=== PATIENT | female | born 1955 | race Native Hawaiian/Other Pacific Islander ===

== ENCOUNTER 2022-09-25 09:08 | Inpatient (IN) ==
[2022-09-25] MEDS ORDERED: SODIUM CHLORIDE 0.9% 1000ML 1,000 ML IV SCH (09:30)
--- NOTE | 2022-09-25 09:32 | Emergency Department Note ---
Impression & Plan Acute confusion, Hyponatremia, Weakness, Acute UTI, Acute hyperglycemia, Acute dehydration, Elevated lactic acid level, Hypomagnesemia ED Provider Note NAME: BRAIN DE GUZMAN AGE: 67 SEX: F : 1955 ARRIVES VIA: Ambulance INFORMANT: [Patient][nursing, ems] ED PROVIDER(S): [Jeffrey Hendrix MD] CHIEF COMPLAINT: Weakness HISTORY OF PRESENT ILLNESS: The patient is a 67-year-old female who presents from the primary care doctor's office. She showed up for an appointment that she did not actually have. She was supposed to be seen yesterday but missed the appointment yesterday. The patient has apparently had increasing weakness of the right side for the last 2 or 3 days. She has a history of a CVA with persistent right-sided weakness but the weakness in the right has been worse lately. She has had a persistent cough. No fever, no chest pain or shortness of breath. No abdominal pain, no vomiting or diarrhea. Patient denies any urinary complaints. No falls. As per EMS, the patient's blood sugar was over 400. She was only oriented x2 PMHx/PSHx: See Below SOCIAL HISTORY: See Below. PHYSICAL EXAM: GENERAL: Patient is in no acute distress. HEENT: No acute trauma, normocephalic atraumatic, mucous membranes markedly dry, no nasal congestion. NECK: No stridor, no adenopathy, no meningismus, trachea is midline. LUNGS: Clear to auscultation bilaterally, no wheeze, no rhonchi, breath sounds equal. HEART: 2/6 systolic murmur, regular rate and rhythm. ABDOMEN: Soft, nontender, bowel sounds positive, no peritonitis. EXTREMITIES: No cyanosis or edema, full range of motion of all the joints without pain or difficulty, no signs for acute trauma. NEUROLOGIC: No speech slur or facial droop. She seems diffusely weak. No cerebellar dysfunction. The patient knew where she was and her name, she missed the month by 1--she thought it was August, she did know the year SKIN: No rash, no jaundice, no diaphoresis. DIFFERENTIAL DIAGNOSIS: Dehydration, electrolyte imbalance, hyperglycemia, DKA, pneumonia, UTI, renal or liver failure, intracranial bleeding or stroke, among others. EMERGENCY DEPARTMENT COURSE/PROCEDURES: Prior/Outside records reviewed: EMS notes. ECG per my interpretation: Indication was weakness. The ECG shows a normal sinus rhythm with a rate of 61. There is some poor R wave progression. No ST elevation, no PVCs. The QTc is 424. Continuous Cardiac Monitoring per my interpretation: An order was placed for continuous cardiac monitoring. The monitor shows a rate of 61 with normal sinus rhythm. Critical Care Note: I have personally spent 51 minutes of critical care time in the direct management of this patient. This includes bedside care, interpretation of diagnostic studies, and testing, discussion with consultants, patient, and family members, and other required patient management activities. This 51 minutes is in excess of all separately billable procedures. MEDICAL DECISION MAKING: There is no leukocytosis or concerning anemia. There is a normal platelet count. Renal panel testing shows a low sodium and low magnesium. Blood sugar was over 350. Lactic acid level was elevated consistent with infection and/or dehydration. Alk phos was elevated, the remaining liver enzymes were unremarkable. ECG showed a normal sinus rhythm, no obvious ischemia. Cardiac enzyme testing x1 was not consistent with acute cardiac injury. Patient appeared to be in a euthyroid state. Urinalysis returned consistent with infection. COVID test returned negative. Chest x-ray did not show mediastinal widening, pneumonia or pneumothorax per my review. Brain CT showed no acute ble ed or mass effect. On exam, the patient appeared diffusely weak and dehydrated. Patient received 2 L of IV saline for hydration. She was given IV cefepime as empiric antibiotic coverage. She received IV magnesium, IV insulin. The patient's blood sugar is now in the 200s. She remains awake, her vital signs are stable. Given her confusion, given her weakness, given the electrolyte abnormalities, given the UTI, I do think a hospital stay is warranted. I suspect the UTI caused her hyperglycemia and resultant dehydration. I did speak with the patient and case management, the on-call hospitalist was consulted. DISPOSITION: Patient's presentation and findings warrant a hospital stay. Past Med/Surg History Medical History COPD (chronic obstructive pulmonary disease) Diabetes mellitus Recurrent UTI Social History Smoking Status: Heavy tobacco smoker Tobacco Type: Cigarettes Feels Safe at Home: Yes Allergies Allergies Allergy/AdvReac Type Severity Reaction Status Date / Time theophylline Allergy Severe HEART RACES Verified 12/02/13 13:31 moxifloxacin Allergy Intermediate RASH Verified 12/02/13 13:31 haloperidol [From Haldol] Allergy Unknown Verified 09/25/22 14:22 quetiapine [From Seroquel] Allergy Unknown Verified 09/25/22 14:22 Home Meds Home Medications Medication Instructions Recorded Confirmed Atorvastatin (Atorvastatin Calcium) 20 mg PO DAILY ##0 12/02/13 09/25/22 CYANOCOBALAMIN (VITAMIN B-12) 1,000 mg PO DAILY ##0 12/02/13 09/25/22 DOXEPIN HCL (DOXEPIN) 100 mg PO HS ##30 12/02/13 09/25/22 FUROSEMIDE (LASIX) 40 mg PO UD #0 tabs 12/02/13 09/25/22 GABAPENTIN (NEURONTIN) 600 mg PO HS #0 tabs 12/02/13 09/25/22 Gabapentin 300 mg PO BID ##120 12/02/13 09/25/22 HALOPERIDOL (HALDOL) 1 mg PO BID #0 tabs 12/02/13 09/25/22 HYDROXYZINE PAMOATE (VISTARIL) 50 mg PO TID #0 caps 12/02/13 09/25/22 MAGNESIUM OXIDE (MAG-OX) 400 mg PO DAILY #0 tabs 12/02/13 09/25/22 OMEPRAZOLE (PRILOSEC) 20 mg PO BID #0 caps 12/02/13 09/25/22 OXYCODONE/ACETAMINOPHEN 5MG/325MG 1 - 2 tab PO Q6H PRN Pain #0 tabs 12/02/13 09/25/22 (PERCOCET 5MG/325MG) aspirin 81 mg tablet,delayed 81 mg PO DAILY ##0 12/02/13 09/25/22 release LISINOPRIL (PRINIVIL) 5 mg PO DAILY #0 tabs 12/07/13 09/25/22 amitriptyline 50 mg tablet See Rx Instructions .Route .COMPLEX 09/25/22 09/25/22 bupropion HCl 300 mg 24 hr tablet, 300 mg PO DAILY 09/25/22 09/25/22 extended release buspirone 10 mg tablet 10 mg PO BID 09/25/22 09/25/22 clopidogrel 75 mg tablet 75 mg PO DAILY 09/25/22 09/25/22 dapagliflozin propanediol 10 mg 10 mg PO DAILY 09/25/22 09/25/22 tablet (Farxiga) dulaglutide 3 mg/0.5 mL 3 mg subcut WK 09/25/22 09/25/22 subcutaneous [facility]or ([facility]) duloxetine 60 mg capsule,delayed 60 mg PO BID 09/25/22 09/25/22 release metformin 500 mg tablet,extended 500 mg PO QID 09/25/22 09/25/22 release 24 hr risperidone 4 mg tablet 4 mg PO HS 09/25/22 09/25/22 Results & Data (ED) Vital Signs Vital Signs - 24 hr 09/25/22 09:17 09/25/22 09:19 09/25/22 09:19 Temperature 36.7 C Temperature Source Oral Pulse Rate 62 Pulse Rate [Apical] 61 Pulse Rhythm Pulse Rhythm [Apical] Regular Pulse Strength Pulse Strength [Apical] Normal Respiratory Rate 19 Respiratory Effort / Characteristics Non-Labored Respiratory Depth Normal Respiratory Pattern Regular Blood Pressure Blood Pressure [Right Arm] 132/72 Blood Pressure Mean Blood Pressure Mean [Right Arm] 92 Pulse Oximetry 97 Oxygen Delivery Method Room Air Room Air Sepsis Recent Fever Within 48 Hours Sepsis New/Unexplained Change in Mental Status Sepsis Action Taken by Nursing 09/25/22 09:27 09/25/22 09:31 09/25/22 13:58 Temperature 36.7 C Temperature Source Oral Pulse Rate 61 61 58 L Pulse Rate [Apical] Pulse Rhythm Regular Pulse Rhythm [Apical] Pulse Strength Normal Pulse Strength [Apical] Respiratory Rate 19 18 Respiratory Effort / Characteristics Non-Labored Respiratory Depth Normal Respiratory Pattern Regular Blood Pressure 132/72 Blood Pressure [Right Arm] Blood Pressure Mean 92 Blood Pressure Mean [Right Arm] Pulse Oximetry 97 97 Oxygen Delivery Method Room Air Room Air Sepsis Recent Fever Within 48 Hours No Sepsis New/Unexplained Change in Mental Status No Sepsis Action Taken by Nursing No Action Required Home Medications Current Medication List: was personally reviewed by me Laboratory Data Attestation: I reviewed the patient's lab results. 09/25/22 09:37 09/25/22 09:37 Lab Results 09/25/22 09/25/22 09/25/22 Range/Units 09:37 09:37 09:37 WBC 4.46 L (4.8-10.8) K/ul RBC 4.46 (4.20-5.40) M/uL Hgb 12.4 (12.0-16.0) g/dl Hct 37.5 (37.0-47.0) % MCV 84.1 (80.0-100.0) fL MCH 27.8 (25.0-34.0) pg MCHC 33.1 (32.0-36.0) g/dL RDW Std Deviation 43.8 (36.4-46.3) fL RDW Coeff of Tim 14.3 (11.5-14.5) % Plt Count 232 (130-400) K/uL MPV 8.8 L (9.4-12.4) fL Immature Gran % (Auto) 0.4 % Neut % (Auto) 61.6 % Lymph % (Auto) 22.6 % [place] % (Auto) 12.3 % Eos % (Auto) 1.8 % Baso % (Auto) 1.3 % Neut # (Auto) 2.74 (1.40-6.50) K/uL Lymph # (Auto) 1.01 L (1.2-3.4) K/uL [place] # (Auto) 0.55 (0.11-0.59) K/uL Eos # (Auto) 0.08 (0-0.50) K/uL Baso # (Auto) 0.06 (0-0.2) K/uL Immature Gran # (Auto) 0.02 (0.01-0.20) K/uL Sodium 128 L (136-145) mmol/L Potassium 4.7 (3.5-5.1) mmol/L Chloride 96 L (98-107) mmol/L Carbon Dioxide 25 (21-32) mmol/L Anion Gap 7 (3-11) BUN 16 (6-23) mg/dl Creatinine 1.00 (0.6-1.2) mg/dl Est Cr Clr Drug Dosing 56.9 ml/min Est GFR ( Amer) 68.5 ml/min Est GFR (Non-Af Amer) 59.1 ml/min BUN/Creatinine Ratio 16.0 (10-20) Glucose 364 H* (70-99(Fasting)) mg/dl POC Glucose (70-99) mg/dl Lactate 2.2 H* (0.4-2.0) mmol/L Calcium 9.9 (8.6-10.3) mg/dl Magnesium 1.4 L (1.7-2.4) mg/dl Total Bilirubin 0.5 (0.2-1.0) mg/dl AST 32 (13-39) U/L ALT 28 (7-52) U/L Alkaline Phosphatase 272 H (34-104) U/L Troponin I High Sens 5.0 (0-14) pg/ml Total Protein 7.3 (6.0-8.3) gm/dl Albumin 3.3 L (3.4-5.0) gm/dl Globulin 4.0 (2.5-4.0) gm/dl Albumin/Globulin Ratio 0.8 L (0.9-2) TSH (0.300-4.500) uIu/ml Urine Color Urine Appearance (Clear) Urine pH (4.5-7.5) Ur Specific [place] (1.000-1.030) Urine Protein (Negative) Urine Glucose (UA) (Negative) Urine Ketones (Negative) Urine Blood (Negative) Urine Nitrite (Negative) Urine Bilirubin (Negative) Urine Urobilinogen (Negative) Ur Leukocyte Esterase (Negative) Urine WBC (Auto) (0-5) /hpf Urine RBC (Auto) (0-4) /hpf U Hyaline Cast (Auto) (0-5) /lpf U Epithel Cells (Auto) (0-5) /lpf Urine Bacteria (Auto) (Negative) SARS-CoV-2, RNA, NAAT (NEGATIVE) 09/25/22 09/25/22 09/25/22 Range/Units 09:37 09:37 11:24 WBC (4.8-10.8) K/ul RBC (4.20-5.40) M/uL Hgb (12.0-16.0) g/dl Hct (37.0-47.0) % MCV (80.0-100.0) fL MCH (25.0-34.0) pg MCHC (32.0-36.0) g/dL RDW Std Deviation (36.4-46.3) fL RDW Coeff of Tim (11.5-14.5) % Plt Count (130-400) K/uL MPV (9.4-12.4) fL Immature Gran % (Auto) % Neut % (Auto) % Lymph % (Auto) % [place] % (Auto) % Eos % (Auto) % Baso % (Auto) % Neut # (Auto) (1.40-6.50) K/uL Lymph # (Auto) (1.2-3.4) K/uL [place] # (Auto) (0.11-0.59) K/uL Eos # (Auto) (0-0.50) K/uL Baso # (Auto) (0-0.2) K/uL Immature Gran # (Auto) (0.01-0.20) K/uL Sodium (136-145) mmol/L Potassium (3.5-5.1) mmol/L Chloride (98-107) mmol/L Carbon Dioxide (21-32) mmol/L Anion Gap (3-11) BUN (6-23) mg/dl Creatinine (0.6-1.2) mg/dl Est Cr Clr Drug Dosing ml/min Est GFR ( Amer) ml/min Est GFR (Non-Af Amer) ml/min BUN/Creatinine Ratio (10-20) Glucose (70-99(Fasting)) mg/dl POC Glucose (70-99) mg/dl Lactate 2.6 H* (0.4-2.0) mmol/L Calcium (8.6-10.3) mg/dl Magnesium (1.7-2.4) mg/dl Total Bilirubin (0.2-1.0) mg/dl AST (13-39) U/L ALT (7-52) U/L Alkaline Phosphatase (34-104) U/L Troponin I High Sens (0-14) pg/ml Total Protein (6.0-8.3) gm/dl Albumin (3.4-5.0) gm/dl Globulin (2.5-4.0) gm/dl Albumin/Globulin Ratio (0.9-2) TSH 1.727 (0.300-4.500) uIu/ml Urine Color Urine Appearance (Clear) Urine pH (4.5-7.5) Ur Specific [place] (1.000-1.030) Urine Protein (Negative) Urine Glucose (UA) (Negative) Urine Ketones (Negative) Urine Blood (Negative) Urine Nitrite (Negative) Urine Bilirubin (Negative) Urine Urobilinogen (Negative) Ur Leukocyte Esterase (Negative) Urine WBC (Auto) (0-5) /hpf Urine RBC (Auto) (0-4) /hpf U Hyaline Cast (Auto) (0-5) /lpf U Epithel Cells (Auto) (0-5) /lpf Urine Bacteria (Auto) (Negative) SARS-CoV-2, RNA, NAAT NEGATIVE (NEGATIVE) 09/25/22 09/25/22 09/25/22 Range/Units 12:00 12:11 13:49 WBC (4.8-10.8) K/ul RBC (4.20-5.40) M/uL Hgb (12.0-16.0) g/dl Hct (37.0-47.0) % MCV (80.0-100.0) fL MCH (25.0-34.0) pg MCHC (32.0-36.0) g/dL RDW Std Deviation (36.4-46.3) fL RDW Coeff of Tim (11.5-14.5) % Plt Count (130-400) K/uL MPV (9.4-12.4) fL Immature Gran % (Auto) % Neut % (Auto) % Lymph % (Auto) % [place] % (Auto) % Eos % (Auto) % Baso % (Auto) % Neut # (Auto) (1.40-6.50) K/uL Lymph # (Auto) (1.2-3.4) K/uL [place] # (Auto) (0.11-0.59) K/uL Eos # (Auto) (0-0.50) K/uL Baso # (Auto) (0-0.2) K/uL Immature Gran # (Auto) (0.01-0.20) K/uL Sodium (136-145) mmol/L Potassium (3.5-5.1) mmol/L Chloride (98-107) mmol/L Carbon Dioxide (21-32) mmol/L Anion Gap (3-11) BUN (6-23) mg/dl Creatinine (0.6-1.2) mg/dl Est Cr Clr Drug Dosing ml/min Est GFR ( Amer) ml/min Est GFR (Non-Af Amer) ml/min BUN/Creatinine Ratio (10-20) Glucose (70-99(Fasting)) mg/dl POC Glucose 220 H (70-99) mg/dl Lactate 1.2 (0.4-2.0) mmol/L Calcium (8.6-10.3) mg/dl Magnesium (1.7-2.4) mg/dl Total Bilirubin (0.2-1.0) mg/dl AST (13-39) U/L ALT (7-52) U/L Alkaline Phosphatase (34-104) U/L Troponin I High Sens (0-14) pg/ml Total Protein (6.0-8.3) gm/dl Albumin (3.4-5.0) gm/dl Globulin (2.5-4.0) gm/dl Albumin/Globulin Ratio (0.9-2) TSH (0.300-4.500) uIu/ml Urine Color Yellow Urine Appearance Cloudy A (Clear) Urine pH 5.5 (4.5-7.5) Ur Specific [place] 1.017 (1.000-1.030) Urine Protein Negative (Negative) Urine Glucose (UA) 3+ H (Negative) Urine Ketones Negative (Negative) Urine Blood Trace H (Negative) Urine Nitrite Positive A (Negative) Urine Bilirubin Negative (Negative) Urine Urobilinogen Negative (Negative) Ur Leukocyte Esterase 2+ H (Negative) Urine WBC (Auto) >30 H (0-5) /hpf Urine RBC (Auto) 5-10 H (0-4) /hpf U Hyaline Cast (Auto) 1-5 (0-5) /lpf U Epithel Cells (Auto) >30 H (0-5) /lpf Urine Bacteria (Auto) 4+ H (Negative) SARS-CoV-2, RNA, NAAT (NEGATIVE) Administered Medications Discontinued Medications Sodium Chloride (Nss 1000ml) 1,000 mls @ 999 mls/hr IV .Q1H1M LUIS M Stop: 09/25/22 10:30 Last Infusion: 09/25/22 10:42 Dose: 0 mls/hr Documented By: Admin: 09/25/22 09:41 Dose: 999 mls/hr Documented By: RSEvonne Magnesium Sulfate/Dextrose (Magnesium Sulfate / D5w) 1 gm in 100 mls @ 100 mls/hr IV NOW STA Stop: 09/25/22 11:15 Last Infusion: 09/25/22 11:45 Dose: 0 mls/hr Documented By: Admin: 09/25/22 10:50 Dose: 100 mls/hr Documented By: RSL Sodium Chloride (Nss 1000ml) 1,000 mls @ 999 mls/hr IV .Q1H1M ONE Stop: 09/25/22 11:54 Last Infusion: 09/25/22 12:23 Dose: 0 mls/hr Documented By: Admin: 09/25/22 11:29 Dose: 999 mls/hr Documented By: RSEvonne Cefepime HCl (Maxipime) 2,000 mg in 20 mls @ 5 mls/min IV NOW STA; Protocol Stop: 09/25/22 12:45 Last Admin: 09/25/22 12:59 Dose: 5 mls/min Documented By: RSL Sodium Chloride (Nss 1000ml) 500 mls @ 999 mls/hr IV .Q31M ONE Stop: 09/25/22 13:25 Last Infusion: 09/25/22 13:32 Dose: 0 mls/hr Documented By: Admin: 09/25/22 12:59 Dose: 999 mls/hr Documented By: ALMA Insulin Human Regular (Novolin-R Insulin Per Unit Charge) 10 units IV NOW STA Stop: 09/25/22 10:12 Last Admin: 09/25/22 10:50 Dose: 10 units Documented By: ALMA Co-signed By: MARA Imaging Data Radiologist's Impression: Head CT 09/25/22 09:26 CT head/brain wo con CLINICAL HISTORY: confusion Technique: Contiguous axial CT images of the head were acquired from the base of the skull to the vertex without intravenous contrast administration. Images were viewed in brain, subdural and bone windows. Automated dose lowering techniques and/or adjustment according to patient size were utilized for this exam. Comparison: None available at the time of this dictation. Findings: The ventricles, basal cisterns, and cerebral sulci are normal. There is no acute intracranial hemorrhage or evidence of acute territorial infarction. Neither mass effect, shift of the midline structures, nor abnormal extra-axial fluid collections are shown. Imaged portions of the paranasal sinuses and mastoid air cells are clear. Right-sided lens replacement is noted. There are no acute fractures of the calvaria or scalp swelling. Impression: No acute intracranial hemorrhage, no evidence of acute territorial infarction or other acute intracranial disease process. ACT 112: Negative or not required by law. Electronically signed by: Gareth Copeland M.D. 09/25/2022 9:54 AM Chest X-Ray 09/25/22 09:27 XR chest 1V portable CLINICAL HISTORY: weakness TECHNIQUE: Single frontal radiograph of the chest was obtained. Comparison: None available at the time of this dictation. FINDINGS: Pacemaker defibrillator is seen. Calcified aortic knob is seen. The lungs are clear. A hiatal hernia is seen. No evidence of pleural effusion or pneumothorax. IMPRESSION: No acute chest disease. ACT 112: Negative or not required by law. Electronically signed by: Gareth Copeland M.D. 09/25/2022 9:55 AM Discharge Plan Visit Data Chief Complaint: Weakness Stated Complaint: weakness ED Provider: Jeffrey Hendrix Discharge Problem: Acute confusion, Hyponatremia, Weakness, Acute UTI, Acute hyperglycemia, Acute dehydration, Elevated lactic acid level, Hypomagnesemia Patient Disposition: Admitted As Inpatient Condition: Fair Forms Stand Alone Forms: My [facility] Prescriptions Prescriptions: No Action Atorvastatin (Atorvastatin Calcium) 20 MG tablet 20 mg PO DAILY Qty: 0 aspirin [Aspir-81] 81 mg Tablet,Delayed Release (Dr/Ec) 81 mg PO DAILY Qty: 0 CYANOCOBALAMIN (VITAMIN B-12) 1,000 MCG SUB 1,000 mg PO DAILY Qty: 0 FUROSEMIDE (LASIX) 40 MG tablet 40 mg PO UD Qty: 0 Patient Comments: 1 tab every morning and 1 tab at noon daily GABAPENTIN (NEURONTIN) 600 MG tablet 600 mg PO HS Qty: 0 Gabapentin 300 MG capsule 300 mg PO BID Qty: 120 Patient Comments: 1 in the morning and 1 in the afternoon HALOPERIDOL (HALDOL) 0.5 MG tablet 1 mg PO BID Qty: 0 HYDROXYZINE PAMOATE (VISTARIL) 50 MG capsule 50 mg PO TID Qty: 0 MAGNESIUM OXIDE (MAG-OX) 400 MG tablet 400 mg PO DAILY Qty: 0 OMEPRAZOLE (PRILOSEC) 20 MG capsule 20 mg PO BID Qty: 0 OXYCODONE/ACETAMINOPHEN 5MG/325MG (PERCOCET 5MG/325MG) tablet 1 - 2 tab PO Q6H PRN (Reason: Pain) Qty: 0 Patient Comments: PAIN DOXEPIN HCL (DOXEPIN) 100 MG capsule 100 mg PO HS Qty: 30 LISINOPRIL (PRINIVIL) 5 MG tablet 5 mg PO DAILY Qty: 0 risperidone 4 mg tablet 4 mg PO HS clopidogrel 75 mg tablet 75 mg PO DAILY Rx Instructions: per pt she said they still have her on this medication. amitriptyline 50 mg tablet See Rx Instructions .ROUTE .COMPLEX Rx Instructions: 1 to 2 at bedtime buspirone 10 mg tablet 10 mg PO BID metformin 500 mg tablet extended release 24 hr 500 mg PO QID bupropion HCl 300 mg tablet extended release 24 hr 300 mg PO DAILY duloxetine 60 mg capsule,delayed release(DR/EC) 60 mg PO BID Farxiga 10 mg tablet 10 mg PO DAILY Trulicity 3 mg/0.5 mL pen injector 3 mg SUBCUT WK Referrals Referrals: PCP,NO [Primary Care Provider] -
[2022-09-25 09:52] LABS: Basophils # (auto) 0.06 K/uL (0-0.2); Basophils % (auto) 1.3 %; Eosinophils # (auto) 0.08 K/uL (0-0.50); Eosinophils % (auto) 1.8 %; Hematocrit (blood only) 37.5 % (37.0-47.0); Hemoglobin 12.4 g/dl (12.0-16.0); Immature Granulocytes # (auto) 0.02 K/uL (0.01-0.20); Immature Granulocytes % (auto) 0.4 %; Lymphocytes # (auto) 1.01 K/uL (1.2-3.4); Lymphocytes % (auto) 22.6 %; Mean Corpuscular Hemoglobin 27.8 pg (25.0-34.0); Mean Corpuscular Hgb Conc 33.1 g/dL (32.0-36.0); Mean Corpuscular Volume 84.1 fL (80.0-100.0); Mean Platelet Volume 8.8 fL (9.4-12.4); Monocytes # (auto) 0.55 K/uL (0.11-0.59); Monocytes % (auto) 12.3 %; Neutrophils # (auto) 2.74 K/uL (1.40-6.50); Neutrophils % (auto) 61.6 %; Platelet Count 232 K/uL (130-400); RDW Coefficient of Variation 14.3 % (11.5-14.5); RDW Standard Deviation 43.8 fL (36.4-46.3); Red Blood Count 4.46 M/uL (4.20-5.40); White Blood Count 4.46 K/ul (4.8-10.8)
--- NOTE | 2022-09-25 09:56 | CT Scan Report ---
CT head/brain wo con CLINICAL HISTORY: confusion Technique: Contiguous axial CT images of the head were acquired from the base of the skull to the daljit esthela without intravenous contrast administration. Images were viewed in brain, subdural and [facility]. Automated dose lowering techniques and/or adjustment according to patient size were utilized for this exam. Comparison: None available at the time of this dictation. Findings: The ventricles, basal cisterns, and cerebral sulci are normal. There is no acute intracranial hemorrh age or evidence of acute territorial infarction. Neither mass effect, shift of the midline structures , nor abnormal extra-axial fluid collections are shown. Imaged portions of the paranasal sinuses and mastoid air cells are clear. Right-sided lens replaceme nt is noted. There are no acute fractures of the calvaria or scalp swelling. Impression: No acute intracranial hemorrhage, no evidence of acute territorial infarction or other acute intracra nial disease process. ACT 112: Negative or not required by law. Electronically signed by: Gareth Copeland M.D. 09/25/2022 9:54 AM
--- NOTE | 2022-09-25 09:57 | XRay Report ---
XR chest 1V portable CLINICAL HISTORY: weakness TECHNIQUE: Single frontal radiograph of the chest was obtained. Comparison: None available at the time of this dictation. FINDINGS: Pacemaker defibrillator is seen. Calcified aortic knob is seen. The lungs are clear. A hiatal hernia is seen. No evidence of pleural effusion or pneumothorax. IMPRESSION: No acute chest disease. ACT 112: Negative or not required by law. Electronically signed by: Gareth Copeland M.D. 09/25/2022 9:55 AM
[2022-09-25] MEDS ORDERED: NovoLIN-R INSULIN PER UNIT CHARGE IV STA (10:11)
[2022-09-25 10:12] LABS: Albumin Globulin Ratio 0.8 (0.9-2); Albumin Level 3.3 gm/dl (3.4-5.0); Bilirubin,Total 0.5 mg/dl (0.2-1.0); Calcium 9.9 mg/dl (8.6-10.3); Creatinine Clr Calc Pharmacy 56.9 ml/min; Est GFR (African American) 68.5 ml/min; Est GFR (Non-African American) 59.1 ml/min; Magnesium 1.4 mg/dl (1.7-2.4); Potassium 4.7 mmol/L (3.5-5.1); Total Protein 7.3 gm/dl (6.0-8.3)
[2022-09-25] MEDS ORDERED: MAGNESIUM SULFATE / D5W 1 GM/100 ML BAG IV STA (10:16)
[2022-09-25] MEDS ORDERED: SODIUM CHLORIDE 0.9% 1000ML 1,000 ML IV ONE (10:54)
[2022-09-25 12:41] LABS: Appearance Urine Cloudy (Clear); Bacteria Urine Automated 4+ (Negative); Bilirubin Urine Negative (Negative); Blood Urine Trace (Negative); Color Urine Yellow; Epithelial Cell Urine Auto >30 /lpf (0-5); Glucose Urine UA 3+ (Negative); Ketones Urine Negative (Negative); Leukocyte Esterase Urine 2+ (Negative); Nitrite Urine Positive (Negative); Protein Urine Negative (Negative); Specific Gravity Urine 1.017 (1.000-1.030); Urobilinogen Urine Negative (Negative); WBC Urine Automated >30 /hpf (0-5); pH Urine 5.5 (4.5-7.5)
[2022-09-25] MEDS ORDERED: CEFEPIME 2,000 MG/20 ML VIAL IV STA (12:42)
--- NOTE | 2022-09-25 12:49 | History & Physical Report ---
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 Patient notes that she has had dizziness and weakness that lead to her presentation to the ED, found to have UTI and significant dehydration. Note: patient is a poor historian- typically sees [facility] providers, currently in the process of obtaining records from her providers and will update medications as further med rec available. Urinary Tract Infection -Reportedly patient has had several UTIs this year, was also started on Farxiga in same timeframe -Obtained partial medical records note she has history of overactive bladder, follows with urology (Sharonda Caldera) -Will continue home Gemtesa, Oxybutynin per available records -UA positive. Lactate initially 2.2, repeats at 2.6 and 1.2 (after ~2.5L NSS). Not currently meeting sepsis criteria -CT head negative, chest XR no acute processes -Received Cefepime in ED -Urine culture, blood cultures pending -Continue Cefepime 2g q8h while awaiting culture, hope to deescalate to Ceftriaxone in next few days Weakness/Physical Deconditioning -Patient presenting with diffuse weakness, some confusion, and significant dehydration -Uses walker at baseline due to right sided deficits secondary to CVA -PT/OT consulted Diabetes Mellitus Type 2, Uncontrolled -Patient states she has not been on insulin for about 2 years. Notes she has neuropathy, CKD secondary to her diabetes -Patient reports being on Metformin, Trulicity, and Farxiga at home -Received 10 units insulin IV in ED, BSG >400 on arrival -Will start SSI, Lantus 13 units BID, Correction Factor 30, Carb Ratio 10 -On gabapentin, duloxetine for neuropathic pain secondary to T2DM Hypomagnesemia -Mag 1.4 on arrival, received mag sulfate in ED -Recheck mag in a.m. Coronary Artery Disease -Per patient had ND in March, did not require stent. Patient doesn't believe she was told she had CHF -Continue rosuvastatin, Lisinopril, aspirin -Ordered echo to evaluate EF, check for wall motion abnormalities -Patient states she is currently on Eliquis, will continue this. Await records from cardiology for further med rec COPD -Continue home inhalers -Current smoker, ~1ppd x30+ years Chronic Lower Back Pain -Sees pain management for treatment, typically has 5/10 low back pain -Continue home Percocet q8h PRN Bipolar Disorder -Continue home Risperdal 1mg qam, 4mg qhs -Continue Wellbutrin VTE Prophylaxis: Eliquis Diet: Carb-consistent, heart healthy. Has received 2.5L NSS boluses, will hold off on maintenance fluids due to uncertain history of CHF. Plan to monitor and reassess need for additional fluid boluses. 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 She states that she had dizziness for the last few days, and went to her pain management provider today who called EMS who brought her to the hospital for weakness/confusion. She states she has had multiple UTIs this year and also was recently discharged from [facility] for UTI within the past week, has also been admitted to [facility] for the same symptoms this year. She denies dysuria but notes frequent small voids, denies flank pain or lower abdominal pain/pressure. Admits she has had poor PO intake of food and fluids in the past days, denies nausea/vomiting/diarrhea. Denies chest pain, shortness of breath. Patient notes that she lives with her , Sunny. He does not have a cell phone and is unaware that she was admitted to the hospital. She states she uses a walker at home. Notes that she has several specialists but does not currently have a PCP. She recalls that she had a heart attack this past March as well as several TIAs, subsequently she has been seen by a Case Worker and was started on Eliquis. She recalls also being told she has atrial fibrillation in the past, is unsure if she has ever been diagnosed with CHF. Allergies Allergy/AdvReac Type Severity Reaction Status Date / Time theophylline Allergy Severe HEART RACES Verified 12/02/13 13:31 moxifloxacin Allergy Intermediate RASH Verified 12/02/13 13:31 haloperidol [From Haldol] Allergy Unknown Verified 09/25/22 14:22 quetiapine [From Seroquel] Allergy Unknown Verified 09/25/22 14:22 Home Medications Medication Instructions Recorded Confirmed Type Atorvastatin (Atorvastatin Calcium) 20 mg PO DAILY ##0 12/02/13 09/25/22 History CYANOCOBALAMIN (VITAMIN B-12) 1,000 mg PO DAILY ##0 12/02/13 09/25/22 History DOXEPIN HCL (DOXEPIN) 100 mg PO HS ##30 12/02/13 09/25/22 History FUROSEMIDE (LASIX) 40 mg PO UD #0 tabs 12/02/13 09/25/22 History GABAPENTIN (NEURONTIN) 600 mg PO HS #0 tabs 12/02/13 09/25/22 History Gabapentin 300 mg PO BID ##120 12/02/13 09/25/22 History HALOPERIDOL (HALDOL) 1 mg PO BID #0 tabs 12/02/13 09/25/22 History HYDROXYZINE PAMOATE (VISTARIL) 50 mg PO TID #0 caps 12/02/13 09/25/22 History MAGNESIUM OXIDE (MAG-OX) 400 mg PO DAILY #0 tabs 12/02/13 09/25/22 History OMEPRAZOLE (PRILOSEC) 20 mg PO BID #0 caps 12/02/13 09/25/22 History OXYCODONE/ACETAMINOPHEN 5MG/325MG 1 - 2 tab PO Q6H PRN Pain #0 tabs 12/02/13 09/25/22 History (PERCOCET 5MG/325MG) aspirin 81 mg tablet,delayed 81 mg PO DAILY ##0 12/02/13 09/25/22 History release LISINOPRIL (PRINIVIL) 5 mg PO DAILY #0 tabs 12/07/13 09/25/22 History amitriptyline 50 mg tablet See Rx Instructions .Route .COMPLEX 09/25/22 09/25/22 History bupropion HCl 300 mg 24 hr tablet, 300 mg PO DAILY 09/25/22 09/25/22 History extended release buspirone 10 mg tablet 10 mg PO BID 09/25/22 09/25/22 History clopidogrel 75 mg tablet 75 mg PO DAILY 09/25/22 09/25/22 History dapagliflozin propanediol 10 mg 10 mg PO DAILY 09/25/22 09/25/22 History tablet (Farxiga) dulaglutide 3 mg/0.5 mL 3 mg subcut WK 09/25/22 09/25/22 History [facility] duloxetine 60 mg capsule,delayed 60 mg PO BID 09/25/22 09/25/22 History release metformin 500 mg tablet,extended 500 mg PO QID 09/25/22 09/25/22 History release 24 hr risperidone 4 mg tablet 4 mg PO HS 09/25/22 09/25/22 History Past Med/Surg History Medical History COPD (chronic obstructive pulmonary disease) Diabetes mellitus Recurrent UTI Social History Smoking Status: Current every day smoker Tobacco Type: Cigarettes Cigarettes Per Day: 20; Do You Dip or Chew Tobacco: No; Hx Alcohol Use: No Hx Substance Use: No Preferred Language: [place] Communication Ability: Effective [employer] Required: No Beliefs That Will Affect Care: None Current Living Situation: Spouse Feels Safe at Home: Yes Assistive Devices: Walker Review of Systems Review of Systems: As per above Physical Exam Constitutional: + obese, + frail appearing and cooperative Eyes: PERRL, conjunctivae normal, anicteric sclerae ENMT: Ears: no external ear abnormality Nose: no external nose abnormality Mouth: + dry oral mucous membranes Neck: trachea midline, no thyromegaly Respiratory: Normal respiratory effort. Expiratory wheeze heard throughout. Cardiovascular: Rate/Rhythm: regular rate and regular rhythm Heart Sounds: no murmur Extremities: no edema Gastrointestinal (Abdomen): normal bowel sounds, soft, nontender, no hepatosplenomegaly Musculoskeletal: Extremities: extremities normal to inspection Strength: right upper and lower extremities 3/5, left sided upper and lower extremities 4/5 Skin: no rashes, warm and dry Neurologic: CN's II-XI intact bilaterally, moves all extremities and awake Psychiatric: Orientation: oriented to person and cooperative; + not oriented to place and + not oriented to time Eye Contact: good eye contact Results & Data Results & Data Vital Signs (Past 12 Hours) Vital Signs Temp Pulse Pulse Resp BP BP Pulse Ox 09/25/22 09:31 61 18 97 09/25/22 09:27 36.7 C 61 19 132/72 97 09/25/22 09:19 36.7 C 61 19 132/72 97 09/25/22 09:19 09/25/22 09:17 62 O2 Del Method 09/25/22 09:31 Room Air 09/25/22 09:27 Room Air 09/25/22 09:19 Room Air 09/25/22 09:19 Room Air 09/25/22 09:[address] 09/25/22 09:26 CT head/brain wo con CLINICAL HISTORY: confusion Technique: Contiguous axial CT images of the head were acquired from the base of the skull to the vertex without intravenous contrast administration. Images were viewed in brain, subdural and bone windows. Automated dose lowering techniques and/or adjustment according to patient size were utilized for this exam. Comparison: None available at the time of this dictation. Findings: The ventricles, basal cisterns, and cerebral sulci are normal. There is no acute intracranial hemorrhage or evidence of acute territorial infarction. Neither mass effect, shift of the midline structures, nor abnormal extra-axial fluid collections are shown. Imaged portions of the paranasal sinuses and mastoid air cells are clear. Right-sided lens replacement is noted. There are no acute fractures of the calvaria or scalp swelling. Impression: No acute intracranial hemorrhage, no evidence of acute territorial infarction or other acute intracranial disease process. ACT 112: Negative or not required by law. Electronically signed by: Gareth Copeland M.D. 09/25/2022 9:54 AM Chest X-Ray 09/25/22 09:27 XR chest 1V portable CLINICAL HISTORY: weakness TECHNIQUE: Single frontal radiograph of the chest was obtained. Comparison: None available at the time of this dictation. FINDINGS: Pacemaker defibrillator is seen. Calcified aortic knob is seen. The lungs are clear. A hiatal hernia is seen. No evidence of pleural effusion or pneumothorax. IMPRESSION: No acute chest disease. ACT 112: Negative or not required by law. Electronically signed by: Gareth Copeland M.D. 09/25/2022 9:55 AM Supervising Physician Co-Signing Physician Notes Patient seen and examined, chart reviewed, case discussed with Ryanne Mccormack and I agree with the assessment and plan as above except as otherwise noted above. Lois is a 67-year-old female with a past medical history of recurrent UTIs, chronic low back pain followed by pain management, recent ND but denies HF, DM2 on insulin 2 years ago now on metformin/farxiga/trulicity, CVA with residual RUE and RLE weakness at baseline, and mod disorder who presented to pain management for LBP followup and due to severe dizziness and confusion was referred to ER for further care. She is found to have an infected appearing urine and is hyperglycemic >400 with normal bicarb and normal AG. Lactate is elevated >2.0 She reports that she has had frequent small-volume voids but without dysuria. Has felt globally weak, more tired and intermittently flushed/feverish. No abdominal pain. She has chronic right upper and right lower extremity weakness, which feels proportionally weak to her global weakness but are not particularly worse compared to anywhere else. No sensory changes. No chest pain or chest pressure. She reports she was seen for possible heart attack in [place] recently, but did not require any stents and has not had bypass and does not think she has had any problems with fluid overload or CHF but is not sure. She reports her diabetes was doing well and she was taken off insulin 2 years ago and thinks this is generally well controlled. She normally followed with [place] in [facility], does not wish to follow-up with that provider any longer and is looking for a new PCP. She reports she has had many UTIs with hospitalizations in the last year, does not think that these have been resistant antibiotics as far she knows. She has had additional dizziness without vertigo for at least the last 2 to 3 days. Was in [place] for UTI last week, felt better at discharge but then started feeling poorly again 2 to 3 days ago. At bedside right hip flexion 3/5, right knee extension and right ankle dorsiflexion/plantarflexion are 4 -/5. Left hip flexion, knee extension, ankle dorsi/plantarflexion 4 -/5. [facility] [employer] [facility] strength, elbow flexion/extension, shoulder internal rotation/external rotation are 5/5 on the left, 4/5 on the right. Sensation soft touch is intact in hands and feet. Radial pulse was intact and symmetrical. CTA B without rales, RRR -mrg. She has no lower extremity edema or JVD on exam. Agree with assessment and management as above. Pending extensive collateral for her current medications and medical history, patient is not overtly encephalopathic but is a poor and unreliable historian and will therefore rely on recent collateral and fills for her medications. Current symptoms do appear to be due to UTI, her baseline stroke symptoms are slightly worsened in the setting of infection but overall she is globally weak without any new focal neurologic symptoms and have a low suspicion for acute CVA. UTI: She is at risk for this infections due to multiple hospitalizations and has had multiple recurrent infections in the last year. Given this will treat more broadly with cefepime 2 g every 8 hours pending either culture results from outside providers which have been requested or UCx results. Technically does not meet SIRS/sepsis criteria, but is severely volume depleted with clear source of symptomatic infection worsening underlying type II DM with additional volume depletion. Patient received 2 L on admission, lactate is uptrending will follow up with another 500 cc bolus. She is not sure if she has a history of CHF notes that she did have an ND but did not need stents or bypass and has never had a problem with edema or swelling. Given this and that she remains slightly dry on exam feel it is reasonable to meet. 30 cc/kg initial resuscitation. Blood cultures are pending. Repeat lactate pending. Paroxysmal A-fib: Patient reports history of this. In sinus on admission. Continue Eliquis which she did take this morning. ? CAD: Patient is unclear on her history of this, reports that she may have had an ND but has had no stents or bypass. Continue aspirin monotherapy, she also takes this for history of CVA. No chest pain or acute EKG changes on admission Type II DM: Reportedly on Farxiga, Trulicity, metformin. Given recurrent symp tomatic UTIs with multiple hospital admissions would not continue Farxiga in the future. We will hold home antiglycemic's and placed on basal bolus sliding scale conservative weight-based with goal BSG [id number]. Patient reports she is on Trulicity which she takes on Saturdays Hypertension: Continue lisinopril Pending clarification: Patient listed as taking Plavix, reports she no longer takes Takes a baby aspirin. Additionally she reports that she does not have a history of CHF to her knowledge, but has been prescribed furosemide by [employer] review. Medical hx and medication reconciliation from [facility] neurology, endocrine, and [facility] are requested from the ER and pending. Has seen Martinez Sterling, Donovan Cardoso, and Crystal Hernandez in the past. Patient also notes her Sunny is not aware that she was brought to the hospital. He unfortunately does not have a cell phone and they do not have a house phone therefore he has no way to know that she has been brought to the hospital and she has been unable to contact anyone to notify him. With patient's permission did reach out to local police department and inform them that Lois was admitted, and with permission they may perform a drive by to her address and notify her of her admission. Did include that she was currently stable. Resident Activity Tracking Resident Involvement: Resident Care Provided Care Provided: Adult Hospital Medicine
[2022-09-25] MEDS ORDERED: SODIUM CHLORIDE 0.9% 1000ML 500 ML IV ONE (12:55)
--- NOTE | 2022-09-25 14:40 | Electrocardiogram Report ---
Test Reason : Blood Pressure : / mmHG Vent. Rate : 061 BPM Atrial Rate : 061 BPM P-R Int : 148 ms QRS Dur : 106 ms QT Int : 422 ms P-R-T Axes : 048 010 037 degrees QTc Int : 424 ms Normal sinus rhythm Cannot rule out Anterior infarct , age undetermined Abnormal ECG When compared with ECG of 11-OCT-2013 11:21, No significant change was found Confirmed by Chad Swanson ([id number]) on 09/25/2022 2:39:50 PM Referred By: REFERRED SELF Confirmed By:Corky Swanson
--- NOTE | 2022-09-25 15:10 | Billing Data ---
Date of Service September 25, 2022 Coding Level of Care Code 33185 INT INP/OBS CARE 3/75MIN Time Spent (min) 40
[2022-09-25] MEDS ORDERED: CARBOHYDRATES FOR HYPOGLYCEMIA PO PRN (16:27)
[2022-09-25] MEDS ORDERED: GLUCAGON FOR INJ 1 MG VIAL SQ PRN (16:27)
[2022-09-25] MEDS ORDERED: ACETAMINOPHEN 325 MG TAB PO PRN (16:27)
[2022-09-25] MEDS ORDERED: GLUCOSE 10 TAB/TUBE PO PRN (16:27)
[2022-09-25] MEDS ORDERED: DEXTROSE 50% 50 ML SYRINGE IV PRN (16:27)
[2022-09-25] MEDS ORDERED: ALBUTEROL HFA 8 GM INHALER INH PRN (16:27)
[2022-09-25] MEDS ORDERED: POLYETHYLENE (MIRALAX) 17 GM PACK PO PRN (16:27)
[2022-09-25] MEDS ORDERED: GLUCOSE 40% GEL 15 GM TUBE PO PRN (16:27)
[2022-09-25] MEDS ORDERED: oxyCODONE/ACETAMINOPHEN 5mg/325mg TAB PO PRN (16:38)
[2022-09-25] MEDS ORDERED: Nursing to Pharmacy Communication SCH (17:30)
[2022-09-25] MEDS ORDERED: NICOTINE 21 MG/24 HR TDSY TD ONE (17:30)
[2022-09-25] MEDS: INSULIN ASPART PER UNIT CHARGE SC SCH ×2 (18:03→20:57)
[2022-09-25] MEDS: MIDODRINE HCL 10 MG TAB PO SCH (18:13)
[2022-09-25] MEDS: CEFEPIME 2,000 MG in SYRINGE 0 ML IV SCH (20:31)
[2022-09-25] MEDS: risperiDONE 2 MG TABLET PO SCH (20:32)
[2022-09-25] MEDS: APIXABAN 5 MG TABLET PO SCH (20:32)
[2022-09-25] MEDS: ROSUVASTATIN CALCIUM 5 MG TAB PO SCH (20:32)
[2022-09-25] MEDS: AMITRIPTYLINE HCL 50 MG TAB PO SCH (20:33)
[2022-09-25] MEDS: lisinopril 2.5 MG TAB PO SCH (20:33)
[2022-09-25] MEDS: DULoxetine HCL 60 MG CAP PO SCH (20:33)
[2022-09-25] MEDS: busPIRone 5 MG TAB PO SCH (20:33)
[2022-09-25] MEDS: FLUTICASONE/VILANTEROL 200/25MCG 14 PUFFS/INHALER INH SCH (20:34)
[2022-09-25] MEDS: LANTUS PER UNIT CHARGE SQ SCH (20:57)
[2022-09-26] MEDS: CEFEPIME 2,000 MG in SYRINGE 0 ML IV SCH ×3 (05:31→20:25)
[2022-09-26 06:54] LABS: Basophils # (auto) 0.06 K/uL (0-0.2); Basophils % (auto) 1.5 %; Eosinophils # (auto) 0.12 K/uL (0-0.50); Eosinophils % (auto) 2.9 %; Hematocrit (blood only) 31.2 % (37.0-47.0); Hemoglobin 10.4 g/dl (12.0-16.0); Immature Granulocytes # (auto) 0.01 K/uL (0.01-0.20); Immature Granulocytes % (auto) 0.2 %; Lymphocytes # (auto) 1.23 K/uL (1.2-3.4); Lymphocytes % (auto) 29.9 %; Mean Corpuscular Hemoglobin 27.4 pg (25.0-34.0); Mean Corpuscular Hgb Conc 33.3 g/dL (32.0-36.0); Mean Corpuscular Volume 82.3 fL (80.0-100.0); Mean Platelet Volume 8.5 fL (9.4-12.4); Monocytes # (auto) 0.65 K/uL (0.11-0.59); Monocytes % (auto) 15.8 %; Neutrophils # (auto) 2.05 K/uL (1.40-6.50); Neutrophils % (auto) 49.7 %; Platelet Count 205 K/uL (130-400); RDW Coefficient of Variation 14.5 % (11.5-14.5); RDW Standard Deviation 42.8 fL (36.4-46.3); Red Blood Count 3.79 M/uL (4.20-5.40); White Blood Count 4.12 K/ul (4.8-10.8)
[2022-09-26 07:19] LABS: BUN Creatinine Ratio 16.9 (10-20); Calcium 8.5 mg/dl (8.6-10.3); Creatinine Clr Calc Pharmacy 63.5 ml/min; Est GFR (African American) 78.8 ml/min; Magnesium 1.5 mg/dl (1.7-2.4); Potassium 4.1 mmol/L (3.5-5.1)
[2022-09-26 07:53] LABS: Estimated Average Glucose 272 mg/dl; Hemoglobin A1C 11.1 % (4.5-5.6)
[2022-09-26] MEDS: DULoxetine HCL 60 MG CAP PO SCH ×2 (08:13→20:19)
[2022-09-26] MEDS: GABAPENTIN 300 MG CAP PO SCH (08:13)
[2022-09-26] MEDS: risperiDONE 1 MG TABLET PO SCH (08:13)
[2022-09-26] MEDS: busPIRone 5 MG TAB PO SCH ×2 (08:13→20:19)
[2022-09-26] MEDS: OXYBUTYNIN CHLORIDE XL 5 MG TABCR PO SCH (08:13)
[2022-09-26] MEDS: ASPIRIN 81 MG ECTAB PO SCH (08:14)
[2022-09-26] MEDS: FLUTICASONE/VILANTEROL 200/25MCG 14 PUFFS/INHALER INH SCH (08:14)
[2022-09-26] MEDS: NICOTINE 21 MG/24 HR TDSY TD SCH (08:14)
[2022-09-26] MEDS: APIXABAN 5 MG TABLET PO SCH ×2 (08:14→20:20)
[2022-09-26] MEDS: MIDODRINE HCL 10 MG TAB PO SCH ×2 (08:14→17:41)
[2022-09-26] MEDS: buPROPion XL 300 MG TABCR PO SCH (08:14)
[2022-09-26] MEDS: VIBEGRON 75 MG TAB PO SCH (08:14)
[2022-09-26] MEDS: INSULIN ASPART PER UNIT CHARGE SC SCH ×4 (08:57→20:39)
[2022-09-26] MEDS: LANTUS PER UNIT CHARGE SQ SCH ×2 (08:57→20:39)
--- NOTE | 2022-09-26 09:42 | Hospitalist Progress Note ---
Date of Service September 26, 2022 Assessment & Plan (1) Weakness: Plan: Attending: Dr. Heath Most likely secondary to deconditioning and recurrent UTI As the day progressed patient seemed to have improved coordination and strength. Was able to perform most duties with minimal supervision. Once acute events are addressed, patient would benefit from home physical therapy Continue to correct electrolytes and treat chronic infection (2) Acute confusion: Plan: Resolved. Most likely etiology is acute illness (3) Electrolyte imbalance: Plan: Magnesium 1.5 -replete with magnesium sulfate 2 g IV Sodium 129 -start NSS at 125 mL/h Follow serial labs (4) Diabetes mellitus: Plan: Hemoglobin A1c 11.1% EMS reported that on arrival patient's POC glucose was greater than 400. Random glucose this morning is 196 Continue Lantus 13 units subcutaneous twice daily as well as sliding scale insulin Outpatient management with focus of reducing elevated hemoglobin A1c (5) Recurrent UTI: Plan: Day #2 cefepime 2 g every 8 hours Positive UA on admission Urine culture with gram-negative bacilli. ID and sensitivities are pending (6) Chronic lower back pain: Plan: Continue with PT/OT Outpatient management as there is no acute issue (7) COPD (chronic obstructive pulmonary disease): Plan: Continue Anoro Ellipta Patient is a current tobacco abuser Continue NicoDerm patch Unsure if patient follows with outpatient pulmonary. No record of pulmonary function testing clearly appreciated Plan Patient lives at home with her In discussion with patient she reports that she has a cell phone and they do not have another cellular device or home telephone. Clinical forklift supervisor asked to contact police to check on and let him know that she is in the hospital and is safe Admission and Anticipated Discharge Date Admission Date: September 25, 2022 Subjective Attending: Dr. Heath 67-year-old female with history of multiple UTIs who was admitted yesterday with weakness and dizziness. She was at her pain management appointment. Provider called EMS for transport for evaluation secondary weakness and confusion. Patient was started on cefepime 2 g IV every 8 hours and admitted for further evaluation and treatment. A.m. labs reviewed and patient found to be hyponatremic with a sodium of 129. Patient also has a magnesium level of 1.5. Hemoglobin A1c is 11.1% Patient seen and examined at bedside. She reports her dizziness is improving. Continues to report with weakness. No appreciation of slurred speech or disorientation Patient denies any fever, chills, sweats, rigors. No abdominal pain. No suprapubic pain. Review of Systems Review of Systems: A total of 10 systems was reviewed and is negative other than as listed in the HPI Physical Exam Physical Exam: GENERAL : No acute distress EYES: No icterus, gaze conjugate NOSE: No evidence of epistaxis MOUTH: No lesions or candidiasis NECK: Supple LUNGS: CTA B/L, no wheezes, rales or rhonchi HEART: Regular, rate controlled ABDOMEN: Soft, NT, ND, BS Present EXTREMITIES: No LE edema, pedal pulses intact NEURO: A&OX3 Results & Data Results & Data Vital Signs (Past 12 Hours) Vital Signs Temp Pulse Resp BP Pulse Ox O2 Del Method 09/26/22 08:39 Room Air 09/26/22 07:55 36.5 C 78 17 119/78 96 Room Air Critical Care Results & Data Vital Signs (Past 12 Hours) Vital Signs Temp Pulse Resp BP Pulse Ox O2 Del Method 09/26/22 08:39 Room Air 09/26/22 07:55 36.5 C 78 17 119/78 96 Room Air Lab & Micro Results (Past 24 Hours) RBC 3.79 M/uL (4.20-5.40) L 09/26/22 WBC 4.12 K/ul (4.8-10.8) L 09/26/22 Hgb 10.4 g/dl (12.0-16.0) L 09/26/22 Hct 31.2 % (37.0-47.0) L 09/26/22 MCV 82.3 fL (80.0-100.0) 09/26/22 MCH 27.4 pg (25.0-34.0) 09/26/22 MCHC 33.3 g/dL (32.0-36.0) 09/26/22 RDW Standard Deviation 42.8 fL (36.4-46.3) 09/26/22 RDW Coefficient of Variation 14.5 % (11.5-14.5) 09/26/22 Plt Count 205 K/uL (130-400) 09/26/22 MPV 8.5 fL (9.4-12.4) L 09/26/22 Neutrophils (%) (Auto) 49.7 % 09/26/22 Lymphocytes (%) (Auto) 29.9 % 09/26/22 Monocytes # (Auto) 0.65 K/uL (0.11-0.59) H 09/26/22 Eosinophils # (Auto) 0.12 K/uL (0-0.50) 09/26/22 Immature Granulocyte % (Auto) 0.2 % 09/26/22 Neutrophils # (Auto) 2.05 K/uL (1.40-6.50) 09/26/22 Lymphocytes # (Auto) 1.23 K/uL (1.2-3.4) 09/26/22 Monocytes # (Auto) 0.65 K/uL (0.11-0.59) H 09/26/22 Eosinophils # (Auto) 0.12 K/uL (0-0.50) 09/26/22 Basophils # (Auto) 0.06 K/uL (0-0.2) 09/26/22 Immature Granulocyte # (Auto) 0.01 K/uL (0.01-0.20) 3 Na 129 mmol/L (136-145) L 09/26/22 K 4.1 mmol/L (3.5-5.1) 09/26/22 Cl 102 mmol/L (98-107) 09/26/22 CO2 24 mmol/L (21-32) 09/26/22 Anion Gap 3 (3-11) 09/26/22 BUN 15 mg/dl (6-23) 09/26/22 Creatinine 0.89 mg/dl (0.6-1.2) 09/26/22 Estimated GFR ( Amer) 78.8 ml/min 09/26/22 Estimated GFR (Non-Af Amer) 68.0 ml/min 09/26/22 BUN/Creatinine Ratio 16.9 (10-20) 09/26/22 Glu 196 mg/dl (70-99(Fasting)) H 09/26/22 Ca 8.5 mg/dl (8.6-10.3) L 09/26/22 Mg 1.5 mg/dl (1.7-2.4) L 09/26/22 06:41 Calcium Level 8.5 mg/dl (8.6-10.3) L 09/26/22 06:41 Diagnostic Findings (Past 24 Hours) Head CT 09/25/22 09:26 CT head/brain wo con CLINICAL HISTORY: confusion Technique: Contiguous axial CT images of the head were acquired from the base of the skull to the vertex without intravenous contrast administration. Images were viewed in brain, subdural and bone windows. Automated dose lowering techniques and/or adjustment according to patient size were utilized for this exam. Comparison: None available at the time of this dictation. Findings: The ventricles, basal cisterns, and cerebral sulci are normal. There is no acute intracranial hemorrhage or evidence of acute territorial infarction. Neither mass effect, shift of the midline structures, nor abnormal extra-axial fluid collections are shown. Imaged portions of the paranasal sinuses and mastoid air cells are clear. Right-sided lens replacement is noted. There are no acute fractures of the calvaria or scalp swelling. Impression: No acute intracranial hemorrhage, no evidence of acute territorial infarction or other acute intracranial disease process. ACT 112: Negative or not required by law. Electronically signed by: Gareth Copeland M.D. 09/25/2022 9:54 AM Chest X-Ray 09/25/22 09:27 XR chest 1V portable CLINICAL HISTORY: weakness TECHNIQUE: Single frontal radiograph of the chest was obtained. Comparison: None available at the time of this dictation. FINDINGS: Pacemaker defibrillator is seen. Calcified aortic knob is seen. The lungs are clear. A hiatal hernia is seen. No evidence of pleural effusion or pneumothorax. IMPRESSION: No acute chest disease. ACT 112: Negative or not required by law. Electronically signed by: Gareth Copeland M.D. 09/25/2022 9:55 AM I & O Totals 24 Hours 09/25/22 09/26/22 09/27/22 06:59 06:59 06:59 Intake Total 2600 / 2600 Balance 2600 / 2600 Cumulative 09/25/22 09:00 thru 09/26/22 06:12 Intake Total 2600 Balance 2600 RT Ventilator Mngmt (Last Documented) Ventilator Ordered Settings Respiratory Rate 17 09/26/22 07:55 Ventilator - PT Measurements Respiratory Rate 17 PG Care Time/CCT Total # of Minutes Spent Total Time Spent with Patient: Total time spent is greater than 50% in coordination of care (as documented) at patient's floor/unit and/or counseling patient: Coding Level of Care Code 88270 SUB INP/OBS CARE 2/35MIN Diagnoses Weakness R53.1 Acute confusion R41.0 Electrolyte imbalance E87.8 Diabetes mellitus E11.9 Recurrent UTI N39.0 Chronic lower back pain M54.50; G89.29 COPD (chronic obstructive pulmonary disease) J44.9 Time Spent (min) 24
[2022-09-26] MEDS: MAGNESIUM SULFATE / D5W 1 GM/100 ML BAG IV SCH ×2 (09:54→11:32)
[2022-09-26] MEDS: SODIUM CHLORIDE 0.9% 1000ML 1,000 ML IV SCH ×2 (09:54→17:41)
--- NOTE | 2022-09-26 13:36 | XCELERA ---
[id number] \\[id number]}___[id number]
[2022-09-26] MEDS: risperiDONE 2 MG TABLET PO SCH (20:18)
[2022-09-26] MEDS: ROSUVASTATIN CALCIUM 5 MG TAB PO SCH (20:20)
[2022-09-26] MEDS: lisinopril 2.5 MG TAB PO SCH (20:20)
[2022-09-26] MEDS: AMITRIPTYLINE HCL 50 MG TAB PO SCH (20:20)
[2022-09-27] MEDS: SODIUM CHLORIDE 0.9% 1000ML 1,000 ML IV SCH ×2 (01:49→09:36)
[2022-09-27] MEDS: CEFEPIME 2,000 MG in SYRINGE 0 ML IV SCH (05:34)
[2022-09-27 07:36] LABS: Basophils # (auto) 0.04 K/uL (0-0.2); Eosinophils # (auto) 0.15 K/uL (0-0.50); Eosinophils % (auto) 3.8 %; Hematocrit (blood only) 30.5 % (37.0-47.0); Hemoglobin 10.1 g/dl (12.0-16.0); Immature Granulocytes # (auto) 0.02 K/uL (0.01-0.20); Immature Granulocytes % (auto) 0.5 %; Lymphocytes % (auto) 23.1 %; Mean Corpuscular Hemoglobin 27.4 pg (25.0-34.0); Mean Corpuscular Hgb Conc 33.1 g/dL (32.0-36.0); Mean Corpuscular Volume 82.9 fL (80.0-100.0); Mean Platelet Volume 8.5 fL (9.4-12.4); Monocytes # (auto) 0.62 K/uL (0.11-0.59); Monocytes % (auto) 15.9 %; Neutrophils # (auto) 2.17 K/uL (1.40-6.50); Neutrophils % (auto) 55.7 %; Platelet Count 188 K/uL (130-400); RDW Coefficient of Variation 14.7 % (11.5-14.5); RDW Standard Deviation 44.8 fL (36.4-46.3); Red Blood Count 3.68 M/uL (4.20-5.40)
[2022-09-27] MEDS: FLUTICASONE/VILANTEROL 200/25MCG 14 PUFFS/INHALER INH SCH (08:45)
[2022-09-27] MEDS: MIDODRINE HCL 10 MG TAB PO SCH (08:45)
[2022-09-27] MEDS: NICOTINE 21 MG/24 HR TDSY TD SCH (08:45)
[2022-09-27] MEDS: OXYBUTYNIN CHLORIDE XL 5 MG TABCR PO SCH (08:46)
[2022-09-27] MEDS: risperiDONE 1 MG TABLET PO SCH (08:46)
[2022-09-27] MEDS: DULoxetine HCL 60 MG CAP PO SCH (08:46)
[2022-09-27] MEDS: APIXABAN 5 MG TABLET PO SCH (08:46)
[2022-09-27] MEDS: VIBEGRON 75 MG TAB PO SCH (08:46)
[2022-09-27] MEDS: busPIRone 5 MG TAB PO SCH (08:46)
[2022-09-27] MEDS: ASPIRIN 81 MG ECTAB PO SCH (08:47)
[2022-09-27] MEDS: GABAPENTIN 300 MG CAP PO SCH (08:47)
[2022-09-27] MEDS: buPROPion XL 300 MG TABCR PO SCH (08:47)
[2022-09-27] MEDS: INSULIN ASPART PER UNIT CHARGE SC SCH ×3 (09:16→14:42)
[2022-09-27] MEDS: LANTUS PER UNIT CHARGE SQ SCH (09:16)
[2022-09-27 09:45] LABS: BUN Creatinine Ratio 18.8 (10-20); Calcium 8.5 mg/dl (8.6-10.3); Creatinine Clr Calc Pharmacy 66.4 ml/min; Est GFR (African American) 83.3 ml/min; Est GFR (Non-African American) 71.9 ml/min; Potassium 4.1 mmol/L (3.5-5.1)
[2022-09-27 10:43] LABS: Magnesium 1.6 mg/dl (1.7-2.4)
[2022-09-27] MEDS ORDERED: cefTRIAXone SODIUM 1,000 MG in DEXTROSE 5% AD-VAN 50 ML IV SCH (11:00)
[2022-09-27] MEDS: MAGNESIUM SULFATE / D5W 1 GM/100 ML BAG IV SCH ×2 (11:46→13:29)
--- NOTE | 2022-09-27 14:09 | Discharge Summary ---
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 She states that she had dizziness for the last few days, and went to her pain management provider today who called EMS who brought her to the hospital for weakness/confusion. She states she has had multiple UTIs this year and also was recently discharged from [facility] for UTI within the past week, has also been admitted to [facility] for the same symptoms this year. She denies dysuria but notes frequent small voids, denies flank pain or lower abdominal pain/pressure. Admits she has had poor PO intake of food and fluids in the past days, denies nausea/vomiting/diarrhea. Denies chest pain, shortness of breath. Patient notes that she lives with her , Sunny. He does not have a cell phone and is unaware that she was admitted to the hospital. She states she uses a walker at home. Notes that she has several specialists but does not currently have a PCP. She recalls that she had a heart attack this past March as well as several TIAs, subsequently she has been seen by a Snowmobile Mechanic and was started on Eliquis. She recalls also being told she has atrial fibrillation in the past, is unsure if she has ever been diagnosed with CHF. Admission Exam Per Admitting Provider Constitutional: + obese, + frail appearing and cooperative Eyes: PERRL, conjunctivae normal, anicteric sclerae ENMT: Ears: no external ear abnormality Nose: no external nose abnormality Mouth: + dry oral mucous membranes Neck: trachea midline, no thyromegaly Respiratory: Normal respiratory effort. Expiratory wheeze heard throughout. Cardiovascular: Rate/Rhythm: regular rate and regular rhythm Heart Sounds: no murmur Extremities: no edema Gastrointestinal (Abdomen): normal bowel sounds, soft, nontender, no hepatosplenomegaly Musculoskeletal: Extremities: extremities normal to inspection Strength: right upper and lower extremities 3/5, left sided upper and lower extr emities 4/5 Skin: no rashes, warm and dry Neurologic: CN's II-XI intact bilaterally, moves all extremities and awake Psychiatric: Orientation: oriented to person and cooperative; + not oriented to place and + not oriented to time Eye Contact: good eye contact Principal Diagnosis Weakness Discharge Exam Constitutional WD/WN, vitals as above cooperative and comfortable; no acute distress Eyes + anicteric sclerae ENMT external ear and nose normal, oropharynx normal Neck trachea midline Respiratory normal respiratory effort, lungs clear to auscultation Cardiovascular RRR, no murmur, no edema Heart Sounds: normal S1 and normal S2 Gastrointestinal (Abdomen) normal bowel sounds, soft, nontender, no hepatosplenomegaly Musculoskeletal Head/Neck/Chest: normocephalic and head atraumatic Skin no rashes, warm and dry Neurologic moves all extremities Psychiatric A+Ox3, euthymic affect Discharge Data Allergies Allergy/AdvReac Type Severity Reaction Status Date / Time theophylline Allergy Severe HEART RACES Verified 12/02/13 13:31 moxifloxacin Allergy Intermediate RASH Verified 12/02/13 13:31 haloperidol [From Haldol] Allergy Unknown Verified 09/25/22 14:22 quetiapine [From Seroquel] Allergy Unknown Verified 09/25/22 14:22 Consultations 09/25/22 12:41 ED Decision to Admit Stat Ordered Studies 09/25/22 09:26 CT head/brain wo con Stat Diabetes Follow up Diabetes Follow-up Needed for HgbA1c >9% Hospital Course (1) Weakness: Mrs. Godinez is a 67 yo F who was admitted to [facility] on 09/25/22 for weakness/confusion. Most likely secondary to deconditioning and recurrent UTI As the admission progressed patient seemed to have improved coordination and strength. Was able to perform most duties with minimal supervision. At one point in her hospital stay, midodrine 10mg BID was added to her medication regimen due to her having orthostatic vital signs. She did have an echocardiogram during her stay -- EF was normal at 50-55% but study did reveal mild Tricuspid Regurg It should be noted that patient is a very poor historian and her medication rec was challenging. She apparently does not have an outpatient PCP --but was working towards [facility] with a Dr. Barros at [facility]. (2) Acute confusion: Resolved. Most likely etiology is acute illness as above (3) Recurrent UTI: - Positive UA on admission - Urine culture gre sanchez sensitive ecoli as well as corynebacterium - blood cultures negative through 48 hours - She was initially treated with Cefepime --> desalted to IV Rocephin and sent out on Cefdinir 300mg BID for remainder of 10 day course Outpatient items to do: A for her recurrence of UTIs -- I recommend she no longer take Farxiga (however based on fill history reviewed by [facility] team, it does not appear as though she had been taking this agent recently anyway). She is also on Oxybutynin -- presumably to overactive bladder. Recommend this either be stopped or dose reduced for same reason. Consider pelvic floor PT for bladder/incontinence issues instead. (4) Electrolyte imbalance: Magnesium 1.5 -repleted with magnesium sulfate 2 g IV x 2 Sodium 129 on admission --> treated with NSS and improved to 137 by day of discharge Outpatient items to do: repeat mag level in 1 week (5) Diabetes mellitus: - poorly controlled - Hemoglobin A1c 11.1% - EMS reported that on arrival patient's POC glucose was greater than 400. - Pharmacy review indicated patient has prescriptions from an customs and immigration officer at [facility]. Highly recommend she see them back in follow up to get this disease under better control. - She was directed to take Lantus 30 units qam. Take Metformin 1000mg BID. Take Trulicity 3mg once weekly. It should be noted the patient was a very poor historian and her medication rec was very challenging to go through. (6) Chronic lower back pain: Outpatient management as there is no acute issue (7) COPD (chronic obstructive pulmonary disease): Continue Anoro Ellipta Patient is a current tobacco abuser Continue NicoDerm patch Unsure if patient follows with outpatient pulmonary. No record of pulmonary function testing clearly appreciated Plan Patient lives at home with her In discussion with patient she reports that she has a cell phone and they do not have another cellular device or home telephone. Clinical supervisor forming department asked to contact police to check on and let him know that she is in the hospital and is safe Total Time Total Time Spent Total Time Spent (In Minutes): 45 Total Time Includes: Examination of the Patient, Discharge Planning and Medication Reconciliation Discharge Plan Discharge Items Patient Disposition: Home - Self-Care Reason For Visit: weakness Discharge Diagnosis: Urinary Tract Infection Condition on Discharge: Fair Activity: Resume your previous activity Non-emergency contact: Primary Care Provider Call non-emergency contact if: you have any medication questions Follow-up/Referrals: PCP,NO [Primary Care Provider] - Diet: Carb Consistent or DM2 Addtl Attending Provider Instructions: You were hospitalized at [facility] for weakness and dizziness. The cause of your symptoms was thought to be due to a recurrent urinary tract infection. You were treated with antibiotics while in the hospital and clinically improved under our care. Please continue to take the antibiotic cefdinir 300mg twice daily for the next 7 days. The cause of your recurrent urinary tract infections may be from taking Farxiga, a medication you had been using to help treat your blood sugar. Please STOP Farxiga at this time. As for you diabetes, you blood sugar is well above goal. For this reason, we need to work on making it lower. Please take inject Lantus insulin 30 units once daily (in the morning) moving forward. Please take Metformin 1000mg TWICE daily moving forward. Please continue to inject Trulicity 3mg once every 7 days. Please check your blood sugar if you feel any of the following symptoms: Fast heartbeat. Shaking. Sweating. Nervousness or anxiety. Irritability or confusion. Dizziness. Hunger. As all of these could be indicative of hypoglycemia-- or too low of a blood sugar level. If you are found to be hypoglycemic (typically considered to be a blood sugar level less than 70, please consume as sugary item right away (ie piece of candy, etc). Additionally, please check your blood sugar once each morning upon awakening (BEFORE you eat/drink anything) and also BEFORE you inject your morning dose of Lantus insulin. Please record your morning blood sugars in the booklet provided at the hospital. Please also check your blood sugar two hours after you consume dinner and record these values in the booklet as well. It is of upmost importance that you see a primary care doctor within one week of hospital discharge. We also recommend you see your customs and immigration officer at [facility] as well. You should take the blood sugar log with you to this appointment so he can make further adjustments to your regimen based on the values. Pending Studies at Discharge: Yes (blood cultures) Stand-Alone Forms: My [facility], Smoking Cessation Medications and DC Order Prescriptions: New midodrine 10 mg Tablet 10 mg PO BIDM 30 Days Qty: 30 0RF Eliquis 5 mg Tablet 5 mg PO BID 30 Days Qty: 60 0RF insulin glargine [Lantus U-100 Insulin] 100 unit/mL Solution 30 unit subcut DAILY 30 Days Qty: 10 0RF metformin 1,000 mg tablet 1,000 mg PO BID 30 Days Qty: 60 0RF cefdinir 300 mg capsule 300 mg PO BID 7 Days Qty: 14 0RF Continued Atorvastatin (Atorvastatin Calcium) 20 MG tablet 20 mg PO DAILY Qty: 0 aspirin 81 mg Tablet,Delayed Release (Dr/Ec) 81 mg PO DAILY Qty: 0 CYANOCOBALAMIN (VITAMIN B-12) 1,000 MCG SUB 1,000 mg PO DAILY Qty: 0 FUROSEMIDE (LASIX) 40 MG tablet 40 mg PO UD Qty: 0 Patient Comments: 1 tab every morning and 1 tab at noon daily GABAPENTIN (NEURONTIN) 600 MG tablet 600 mg PO HS Qty: 0 MAGNESIUM OXIDE (MAG-OX) 400 MG tablet 400 mg PO DAILY Qty: 0 OMEPRAZOLE (PRILOSEC) 20 MG capsule 20 mg PO BID Qty: 0 OXYCODONE/ACETAMINOPHEN 5MG/325MG (PERCOCET 5MG/325MG) tablet 1 - 2 tab PO Q6H PRN (Reason: Pain) Qty: 0 Patient Comments: PAIN DOXEPIN HCL (DOXEPIN) 100 MG capsule 100 mg PO HS Qty: 30 LISINOPRIL (PRINIVIL) 5 MG tablet 5 mg PO DAILY Qty: 0 risperidone 4 mg tablet 4 mg PO HS amitriptyline 50 mg tablet See Rx Instructions .ROUTE .COMPLEX Rx Instructions: 1 to 2 at bedtime buspirone 10 mg tablet 10 mg PO BID bupropion HCl 300 mg tablet extended release 24 hr 300 mg PO DAILY duloxetine 60 mg capsule,delayed release(DR/EC) 60 mg PO BID Trulicity 3 mg/0.5 mL pen injector 3 mg SUBCUT WK Discontinued Gabapentin 300 MG capsule 300 mg PO BID Qty: 120 Patient Comments: 1 in the morning and 1 in the afternoon HALOPERIDOL (HALDOL) 0.5 MG tablet 1 mg PO BID Qty: 0 HYDROXYZINE PAMOATE (VISTARIL) 50 MG capsule 50 mg PO TID Qty: 0 clopidogrel 75 mg tablet 75 mg PO DAILY Rx Instructions: per pt she said they still have her on this medication. metformin 500 mg tablet extended release 24 hr 500 mg PO QID Farxiga 10 mg tablet 10 mg PO DAILY Discharge Orders: Discharge Order (Routine); Ordered 09/27/22 Ordered By: Amelia Manuel/Other Patient Handouts: Insulin Glargine Injectable Sugar, Managing Type 2 Diabetes Admission Data Admit Date/Time: 09/25/22 14:18 Attending Provider: Amelia Fox Admit Provider: Ryanne Pathak Primary Care Provider: PCP,NO Other Providers: Curly Moon ; Lemuel Heath Other Interventions: Discharge Summary Assessment (RN) Last Done: 09/27/22 15:10 Coding Level of Care Code 89268 INP/OBS DISCH >30 MIN Diagnoses Weakness R53.1 Acute confusion R41.0 Recurrent UTI N39.0 Electrolyte imbalance E87.8 Diabetes mellitus E11.9 Chronic lower back pain M54.50; G89.29 COPD (chronic obstructive pulmonary disease) J44.9
[2022-09-27] MEDS ORDERED: LANTUS PER UNIT CHARGE SQ SCH (21:00)
== END 2022-09-27 15:58 | disposition home or self-care (01) | DRG 690 ==
LOC: ED 09:08 → 3N 14:18 → SUATTDRO 14:18 → 3N 16:04